=== PATIENT | male | born 1970 | race African-American/Black ===

== ENCOUNTER 2018-04-08 13:15 | Emergency (ER) | payer SELFPAY ==
[2018-04-08 13:24] VITALS: BMI 32.3
[2018-04-08] MEDS ORDERED: SODIUM CHLORIDE 1,000 ML IV ONE (13:44)
--- NOTE | 2018-04-08 14:06 | PDOC ---
History of Present Illness - General Chief Complaint: Hematuria Stated Complaint: BLOOD IN URINE Time Seen by Provider: 04/08/18 13:43 History Source: Patient Exam Limitations: No Limitations - History of Present Illness Travel History: No Initial Comments: 04/08/18 14:01 Patient came for evaluation of hematuria. States noted some discoloration last night after avoid, woke up this morning and noted some darkening to the bowl where patient has blue cleaning solution but states looked "funny". Then this afternoon when he had another episode of what appeared to be much darker colored red urine was concerned and came for evaluation.Denies exquisite pain however states had some right flank and back pain 2 days ago that primarily resolved on its own. Patient exercises frequently and regularly and wondered if maybe he had pulled a muscle but became concerned after the hematuria started. Denies fever, denies nausea or vomiting, no changes in bowel. Has no testicular pain, penile drainage, or history of STDs. Timing/Duration: reports: changing over time, intermittent Quality: reports: mild, moderate Pain Radiation: reports: flank, back Activities at Onset: reports: none Aggravating Factors: improves with: None Past History - Travel Traveled outside of the country in the last 30 days: No Close contact w/someone who was outside of country & ill: No - Past Medical History Allergies/Adverse Reactions: Allergies Allergy/AdvReac Type Severity Reaction Status Date / Time No Known Allergies Allergy Verified 04/08/18 13:24 COPD: No Diabetes: Yes Hypercholesterolemia: Yes - Suicide/Smoking/Psychosocial Hx Smoking History: Never smoked Review of Systems - Review of Systems Able to Perform ROS?: Yes Is the patient limited Amharic proficient: Yes Constitutional: Yes: Symptoms Reported, See HPI HEENTM: Yes: See HPI. No: Symptoms Reported Respiratory: Yes: See HPI. No: Symptoms reported, Cough ABD/GI: Yes: Symptoms Reported, See HPI. No: Nausea, Poor Appetite, Vomiting, Abdominal cramping : Yes: Symptoms Reported, See HPI, Hematuria. No: Incontinence, Testicular Mass, Testicular Swelling, Lesions Musculoskeletal: Yes: See HPI. No: Symptoms Reported, Back Pain Integumentary: Yes: Symptoms Reported All Other Systems: Reviewed and Negative *Physical Exam - Vital Signs Last Vital Signs Temp Pulse Resp BP Pulse Ox 98.4 F 77 18 160/96 100 04/08/18 13:20 04/08/18 13:20 04/08/18 13:20 04/08/18 13:20 04/08/18 13:20 - Physical Exam General Appearance: Yes: Nourished, Appropriately Dressed, Mild Distress HEENT: positive: ISACC, Normal ENT Inspection, Normal Voice, TMs Normal, Pharynx Normal Neck: positive: Supple. negative: Tender Respiratory/Chest: positive: Lungs Clear, Normal Breath Sounds Gastrointestinal/Abdominal: positive: Normal Bowel Sounds, Soft. 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 Pain-free at the moment pain and refuses need for pain medication presently. Medical Decision Making - Medical Decision Making 04/08/18 17:31 CT negative for any evidence of hydronephrosis or kidney stones. Laboratory work within normal limits except for +3 blood in urine. We will have follow-up with urologist on Tuesday for thorough examination and prostate exam. *DC/Admit/Observation/Transfer Diagnosis at time of Disposition: Hematuria Qualifiers: Hematuria type: unspecified type Qualified Code(s): R31.9 - Hematuria, unspecified - Discharge Dispostion Disposition: HOME Condition at time of disposition: Stable Decision to Admit order: No - Referrals Referrals: Mckay Nelson MD., MD [Staff Physician] - - Patient Instructions Printed Discharge Instructions: DI for Hematuria Additional Instructions: Rest, drink lots of fluids: Teas, water, soups Continue [id number] medications for symptomatic relief Tylenol or Motrin for fever and pain Followup with private physician / urologist in one to 2 days for repeat urinalysis/reevaluation Return to emergency department for worsened symptoms, fevers, dehydration/ worsen bleeding - Post Discharge Activity Forms/Work/School Notes: Back to Work
[2018-04-08 14:48] LABS: BASO % 0.8 % (0-2.0); EOS % 4.9 % (0-4.5); HEMATOCRIT 48.6 % (35.4-49); LYMPH % 27.7 % (8-40); MCH 26.3 pg (25.7-33.7); MEAN CELL VOLUME 79.7 fl (80-96); MEAN PLT VOLUME 8.7 fl (7.5-11.1); MONO % 12.4 % (3.8-10.2); NEUT % 54.2 % (42.8-82.8); PLATELET COUNT 216 K/MM3 (134-434); RDW 14.2 % (11.9-15.9); WHITE BLOOD COUNT 6.4 K/mm3 (4.0-10.0)
[2018-04-08 14:50] LABS: URINE APPEARANCE SLCLOUDY; URINE BILIRUBIN NEGATIVE (<2.0 mg/dL); URINE BLOOD 3+ (NEGATIVE); URINE COLOR YELLOW; URINE GLUCOSE (UA) NEGATIVE (NEGATIVE); URINE KETONE NEGATIVE (NEGATIVE); URINE LEUK ESTERASE NEGATIVE (NEGATIVE); URINE NITRITE NEGATIVE (NEGATIVE); URINE PROTEIN 1+ (NEGATIVE); URINE UROBILINOGEN NEGATIVE mg/dL (0.2-1.0)
[2018-04-08 14:59] LABS: EPI CELLS RARE /HPF (FEW); YEAST RARE
[2018-04-08 15:08] LABS: ALBUMIN 3.9 g/dl (3.4-5.0); ANION GAP 7 (8-16); BLOOD UREA NITROGEN 15 mg/dL (7-18); CHLORIDE 103 mmol/L (98-107); CO2 29 mmol/L (21-32); GLUCOSE,RANDOM 96 mg/dL (74-106); POTASSIUM 4.2 mmol/L (3.5-5.1); SODIUM 139 mmol/L (136-145)
[2018-04-08 15:11] LABS: ALK PHOS 59 U/L (45-117); BILIRUBIN,TOTAL 0.5 mg/dL (0.2-1.0); CREATININE 1.3 mg/dL (0.7-1.3); SGOT/AST 15 U/L (15-37); SGPT/ALT 31 U/L (12-78); TOT PROT 7.7 g/dl (6.4-8.2)
[2018-04-08 17:49] VITALS: BP 155/72; PULSE 62; TEMP 98.2
== END 2018-04-08 17:52 | disposition home or self-care (01) ==
LOC: JER 13:15
DX: R31.9 Hematuria, unspecified (principal)
CPT/HCPCS: 36415; 74176; 80053; 81003; 81015; 85025; 99282-25

== ENCOUNTER 2021-11-30 04:13 | Day surgery (SDC) | payer OTHER ==
[2021-09-29 14:01] VITALS: BMI 31.3
[2021-11-30] MEDS ORDERED: LIDOCAINE HCL/PF 2% SDV 5ML VIAL ONE (08:27)
[2021-11-30] MEDS ORDERED: GLYCOPYRROLATE 0.2 MG/1 ML VIAL ONE (08:27)
[2021-11-30] MEDS ORDERED: MIDAZOLAM HCL 2 MG/2 ML SINGLE DOSE VIAL ONE (08:27)
[2021-11-30] MEDS ORDERED: PROPOFOL 20 ML ONE ×2 (08:56)
[2021-11-30] MEDS ORDERED: ACETAMINOPHEN 500 MG TABLET (FP) PO PRN (09:22)
[2021-11-30] MEDS ORDERED: ONDANSETRON 4 MG/2 ML VIAL IVPUSH PRN (09:22)
[2021-11-30] MEDS ORDERED: oxyCODONE HCL 5 MG TABLET PO PRN ×2 (09:22)
[2021-11-30] MEDS ORDERED: LACTATED RINGERS SOLUTION 1,000 ML IV SCH (09:30)
[2021-11-30 11:22] VITALS: BP 147/75; PULSE 60; TEMP 97.5
== END 2021-11-30 11:38 | disposition home or self-care (01) ==
LOC: JASU-SURG 04:13
PROVIDERS: ATTEND Urology
PROC: 0TF3XZZ Fragmentation in Right Kidney Pelvis, External Approach (ICD-10-PCS; principal; 2021-11-30 08:30)
DX: N20.0 Calculus of kidney (principal)
CPT/HCPCS: 82962

== ENCOUNTER 2022-11-21 17:36 | Emergency (ER) | payer OTHER ==
[2022-11-21 17:43] VITALS: BP 161/94; PULSE 86; RESP 18; TEMP 97; BMI 31.3
== END 2022-11-21 20:49 | disposition home or self-care (01) ==
LOC: JER 17:36 → JERFT 17:36
DX: S60.012A Contusion of left thumb without damage to nail, initial encounter (principal); W23.1XXA Caught, crushed, jammed, or pinched between stationary objects, initial encounter
CPT/HCPCS: 73130-TC-RT-FY; 99283-25

== ENCOUNTER 2023-07-09 17:36 | Emergency (ER) | payer OTHER ==
[2023-07-09 17:46] VITALS: BP 123/81; PULSE 95; RESP 18; TEMP 99.9; BMI 32.3
[2023-07-09] MEDS ORDERED: ACETAMINOPHEN 500 MG TABLET (FP) PO ONE (19:38)
[2023-07-09] MEDS ORDERED: ACETAMINOPHEN 500 MG TABLET (FP) ONE (19:39)
[2023-07-09] MEDS ORDERED: AMOX TR/POT CLAV 875MG/125MG TABLETS (FP) PO ONE (20:39)
== END 2023-07-09 20:57 | disposition home or self-care (01) ==
LOC: JERFT 17:36
DX: R50.9 Fever, unspecified (principal); R51.9 Headache, unspecified; J32.9 Chronic sinusitis, unspecified; Z20.822 Contact with and (suspected) exposure to COVID-19
CPT/HCPCS: 0241U-QW; 99283-25

== ENCOUNTER → 2024-05-02 | Day surgery (SDC) | payer OTHER | END | disposition home or self-care (01) | LOC: JRADIR 11:58 | PROVIDERS: ATTEND Internal Medicine Endocrinology, Diabetes & Metabolism | PROC: 0G9H3ZX Drainage of Right Thyroid Gland Lobe, Percutaneous Approach, Diagnostic (ICD-10-PCS; principal; 2024-05-02) | DX: E04.1 Nontoxic single thyroid nodule (principal) | CPT/HCPCS: 10005; 76942; 88173; 88305-TC ==

== ENCOUNTER 2024-05-20 23:14 | Emergency (ER) | payer OTHER ==
[2024-05-20 23:22] VITALS: BP 127/79; PULSE 68; RESP 18; TEMP 98.2; BMI 28.2
== END 2024-05-21 00:46 | disposition home or self-care (01) ==
LOC: JER 23:14
DX: U07.1 COVID-19 (principal)
CPT/HCPCS: 0241U-QW; 99283-25

== ENCOUNTER 2025-03-04 06:17 | Day surgery (SDC) | payer OTHER ==
[2025-02-27 11:19] VITALS: BMI 29.8
[2025-03-04 10:26] VITALS: BP 121/60; PULSE 62; RESP 17; TEMP 98.1
== END 2025-03-04 10:44 | disposition home or self-care (01) ==
LOC: JASU-ENDO 06:17
PROVIDERS: ATTEND Internal Medicine Gastroenterology
PROC: 0DJD8ZZ Inspection of Lower Intestinal Tract, Via Natural or Artificial Opening Endoscopic (ICD-10-PCS; principal; 2025-03-04 08:45)
DX: Z12.11 Encounter for screening for malignant neoplasm of colon (principal); K57.30 Diverticulosis of large intestine without perforation or abscess without bleeding; K64.8 Other hemorrhoids
CPT/HCPCS: 82962

== ENCOUNTER 2025-08-19 08:44 | Day surgery (SDC) | payer OTHER ==
[2025-08-13 15:24] VITALS: BMI 30.7
[2025-08-19] MEDS ORDERED: BUPIVACAINE HCL/EPINEPHRINE/PF 30 ML VIAL IJ ONE (09:51)
[2025-08-19] MEDS ORDERED: ROPIVACAINE HCL/PF 100 MG/20 ML VIAL ONE ×2 (10:31→10:32)
[2025-08-19] MEDS ORDERED: MIDAZOLAM HCL 2 MG/2 ML SINGLE DOSE VIAL ONE (10:32)
[2025-08-19] MEDS ORDERED: SUCCINYLCHOLINE CHLORIDE 200 MG/10 ML SYRINGE ONE (10:49)
[2025-08-19] MEDS ORDERED: PROPOFOL 40 ML ONE (10:49)
[2025-08-19] MEDS ORDERED: DEXAMETHASONE SOD PHOSPHATE 4 MG/1 ML VIAL ONE (11:15)
[2025-08-19] MEDS ORDERED: ONDANSETRON 4 MG/2 ML VIAL ONE (11:15)
[2025-08-19] MEDS: BUPIVACAINE 0.25% /EPI 1:200,000 10 ML VIAL NR ONE ×2 (11:25)
[2025-08-19] MEDS ORDERED: PROPOFOL 20 ML ONE (13:06)
[2025-08-19] MEDS ORDERED: ONDANSETRON 4 MG/2 ML VIAL IVPUSH PRN (13:23)
[2025-08-19] MEDS: ACETAMINOPHEN 1000 MG/100 ML BAG IVPB ONE (13:30)
[2025-08-19] MEDS ORDERED: FENTANYL CITRATE/PF 50 MCG/ML VIAL ONE (13:58)
[2025-08-19 15:26] VITALS: RESP 16; TEMP 97.8
[2025-08-19 17:07] VITALS: BP 114/69; PULSE 72
== END 2025-08-19 15:30 | disposition home or self-care (01) ==
LOC: FASU 08:44
PROVIDERS: ATTEND Orthopaedic Surgery
PROC: 0RNK4ZZ Release Left Shoulder Joint, Percutaneous Endoscopic Approach (ICD-10-PCS; 2025-08-19)
PROC: 0RB Upper Joints, Excision (ICD-10-PCS; principal; 2025-08-19 11:12)
PROC: 0LM24ZZ Reattachment of Left Shoulder Tendon, Percutaneous Endoscopic Approach (ICD-10-PCS; 2025-08-19 11:12)
DX: S46.012D Strain of muscle(s) and tendon(s) of the rotator cuff of left shoulder, subsequent encounter (principal); S43.432D Superior glenoid labrum lesion of left shoulder, subsequent encounter; M75.22 Bicipital tendinitis, left shoulder; M75.52 Bursitis of left shoulder; M65.812 Other synovitis and tenosynovitis, left shoulder; M75.02 Adhesive capsulitis of left shoulder; M19.012 Primary osteoarthritis, left shoulder; X58.XXXD Exposure to other specified factors, subsequent encounter; Y92.9 Unspecified place or not applicable; Y93.9 Activity, unspecified
CPT/HCPCS: 29823; 29826; 29827; C1713; 82962; 88304-TC; 94760